=== PATIENT | male | born 1995 | race Two or more races ===

== ENCOUNTER 2017-12-20 12:19 | Emergency (ER) | payer MEDICAID ==
[~2017-12-20] VITALS: Ht 170.2 cm; Wt 70.0 kg
[2017-12-20] MEDS ORDERED: IBUPROFEN 600MG TABLET PO ONE (13:15)
[2017-12-20] MEDS ORDERED: ACETAMINOPHEN 325MG TABLET PO ONE (13:15)
[2017-12-20 13:17] VITALS: BP 128/87
== END 2017-12-20 13:18 | disposition home or self-care (01) ==
LOC: ER 12:19
DX: S13.4XXA Sprain of ligaments of cervical spine, initial encounter (principal); V43.52XA Car driver injured in collision with other type car in traffic accident, initial encounter; Y93.89 Activity, other specified; Y92.410 Unspecified street and highway as the place of occurrence of the external cause; Y99.8 Other external cause status
CPT/HCPCS: 99283